=== PATIENT | male | born 1985 | race Caucasian/White ===

== ENCOUNTER → 2017-02-17 | Outpatient (CLI) | payer BC ==
[2017-02-17 09:42] LABS: Follicle Stimulating Hormone 3.8 mIU/mL (1.6-9.7)
== END | disposition home or self-care (01) ==
LOC: LABWHC1 07:57
PROVIDERS: ATTEND Urology
DX: N46.11 Organic oligospermia (principal)
CPT/HCPCS: 36415; 83001; 84403

== ENCOUNTER 2018-12-09 17:56 | Emergency (ER) | payer BC ==
[2018-12-09] MEDS ORDERED: SODIUM CHLORIDE 0.9% 500 ML 500 ML IV STA (19:15)
[2018-12-09] MEDS ORDERED: ONDANSETRON 4 MG/2 ML VIAL IVP STA (19:15)
[2018-12-09] MEDS ORDERED: HYDROmorphone 0.5 MG/0.5 ML SYRINGE IVP STA (19:15)
[2018-12-09] MEDS ORDERED: SODIUM CHLORIDE 0.9% 1,000 ML IV STA (19:15)
[2018-12-09] MEDS ORDERED: KETOROLAC 30 MG/ML 1 ML VIAL IVP STA (19:15)
--- NOTE | 2018-12-09 19:18 | ED ---
Abdominal Pain HPI - General Chief Complaint: Abdominal Pain Stated Complaint: ABDOMINAL PAIN, LEFT FLANK PAIN Time Seen by Provider: 12/09/18 18:54 Source: patient Mode of arrival: ambulatory Limitations: no limitations - History of Present Illness Initial Comments: 33-year-old male patient presents to the emergency department today for evaluation of left-sided abdominal pain that radiates into the left groin and into the left flank. Patient states the pain started suddenly around 3030 this afternoon. Patient rates his been very nauseated and has had several episodes of vomiting with the pain. States he has been chilled and felt feverish. States he has only had a small bit of urine output. Denies any hematuria. He denies any hematochezia or melena. Denies any constipation or diarrhea. States he has had appendectomy but no other abdominal surgeries. Denies history of kidney stone. Denies any discharge from the penis. Patient denies any recent rash, shortness breath, chest pain, numbness, tingling, dizziness, weakness, dysuria, urinary urgency, urinary frequency, headache, visual changes , or any other complaints. - Related Data Previous Rx's Medication Instructions Recorded Hydrocodone/Acetaminophen [Borden 1 - 2 each PO Q6HR PRN #30 tab 08/01/14 5-325] Ibuprofen [Motrin] 600 mg PO Q8HR PRN #30 tab 12/09/18 Ondansetron [Zofran ODT] 4 mg PO Q8HR PRN #10 tab 12/09/18 Tamsulosin HCl [Flomax] 0.4 mg PO DAILY #7 cap 12/09/18 Allergies Allergy/AdvReac Type Severity Reaction Status Date / Time general anesthetic Allergy Unknown Uncoded 12/09/18 18:52 Review of Systems ROS Statement: Those systems with pertinent positive or pertinent negative responses have been documented in the HPI. ROS Other: All systems not noted in ROS Statement are negative. Past Medical History Past Medical History: No Reported History History of Any Multi-Drug Resistant Organisms: None Reported Past Surgical History: Appendectomy, Hernia Repair Additional Past Surgical History / Comment(s): testicular. arm trauma 2009 Past Anesthesia/Blood Transfusion Reactions: No Reported Reaction Past Psychological History: No Psychological Hx Reported Smoking Status: Never smoker Past Alcohol Use History: Occasional Past Drug Use History: None Reported General Exam Limitations: no limitations General appearance: alert, in no apparent distress, other (Social well-developed , well-nourished adult male patient in no acute distress. Vital signs upon presentation are temperature 98.1, pulse 65, respirations 20, blood pressure 145 /87, pulse ox 100% on room air.) Eye exam: Present: normal appearance, PERRL, EOMI. Absent: scleral icterus, conjunctival injection, periorbital swelling ENT exam: Present: normal exam, normal oropharynx, mucous membranes moist Respiratory exam: Present: normal lung sounds bilaterally. Absent: respiratory distress, wheezes, rales, rhonchi, stridor Cardiovascular Exam: Present: regular rate, normal rhythm, normal heart sounds. Absent: systolic murmur, diastolic murmur, rubs, gallop, clicks GI/Abdominal exam: Present: soft, tenderness (Left lower quadrant, suprapubic tenderness), normal bowel sounds. Absent: distended, guarding, rebound, rigid Back exam: Present: normal inspection. Absent: CVA tenderness (R), CVA tenderness (L) Neurological exam: Present: alert, oriented X3, CN II-XII intact Psychiatric exam: Present: normal affect, normal mood Skin exam: Present: warm, dry, intact, normal color. Absent: rash Course Vital Signs 12/09/18 12/09/18 18:50 21:25 Temperature 98.1 F 97.9 F Pulse Rate 65 83 Respiratory 20 16 Rate Blood Pressure 145/87 121/72 O2 Sat by Pulse 100 100 Oximetry Medical Decision Making - Medical Decision Making 33-year-old male patient presented to the emergency department today for evaluation of left-sided abdominal and left flank pain started around 3:30 this afternoon. Physical examination did reveal some left lower quadrant tenderness and left flank tenderness. Labs reviewed and did reveal elevated white blood cell count of 14,000, urinalysis showed 1+ protein, large amount of blood, 67 red blood cells, 12 white blood cells, and many mucous. No bacteria. CT abdomen and pelvis was obtained and did show evidence of a recently passed kidney stone was a 2 mm calculus in the urinary bladder. There was some fullness in the left renal pelvis and some mild fat stranding at the proximal ureter suggestive of a recently passed stone. Did discuss findings and results with the patient. We will start Flomax and anti-inflammatory medication. He' ll be given prescription for Zofran. It is felt that his elevated white blood cell count is secondary to stress and vomiting. He is instructed to follow-up with his primary care physician for recheck in 1-2 days. Return parameters were discussed in detail. He verbalizes understanding and agrees with this plan. - Lab Data Result diagrams: 12/09/18 19:43 12/09/18 19:43 Lab Results 12/09/18 12/09/18 12/09/18 Range/Units 19:43 19:43 20:21 WBC 14.8 H (3.8-10.6) k/uL RBC 4.74 (4.30-5.90) m/uL Hgb 14.3 (13.0-17.5) gm/dL Hct 42.7 (39.0-53.0) % MCV 90.1 (80.0-100.0) fL MCH 30.2 (25.0-35.0) pg MCHC 33.6 (31.0-37.0) g/dL RDW 12.7 (11.5-15.5) % Plt Count 212 (150-450) k/uL Neutrophils % 88 % Lymphocytes % 8 % Monocytes % 4 % Eosinophils % 0 % Basophils % 0 % Neutrophils # 13.0 H (1.3-7.7) k/uL Lymphocytes # 1.1 (1.0-4.8) k/uL Monocytes # 0.5 (0-1.0) k/uL Eosinophils # 0.1 (0-0.7) k/uL Basophils # 0.0 (0-0.2) k/uL Sodium 142 (137-145) mmol/L Potassium 4.1 (3.5-5.1) mmol/L Chloride 104 (98-107) mmol/L Carbon Dioxide 27 (22-30) mmol/L Anion Gap 11 mmol/L BUN 16 (9-20) mg/dL Creatinine 1.06 (0.66-1.25) mg/dL Est GFR (CKD-EPI)AfAm >90 (>60 ml/min/1.73 sqM) Est GFR (CKD-EPI)NonAf >90 (>60 ml/min/1.73 sqM) Glucose 122 H (74-99) mg/dL Calcium 9.5 (8.4-10.2) mg/dL Total Bilirubin 0.7 (0.2-1.3) mg/dL AST 31 (17-59) U/L ALT 44 (21-72) U/L Alkaline Phosphatase 85 (38-126) U/L Total Protein 8.5 H (6.3-8.2) g/dL Albumin 4.8 (3.5-5.0) g/dL Amylase 46 (30-110) U/L Lipase 192 (23-300) U/L Urine Color Light Red Urine Appearance Turbid (Clear) Urine pH 6.0 (5.0-8.0) Ur Specific [place] 1.023 (1.001-1.035) Urine Protein 1+ H (Negative) Urine Glucose (UA) Negative (Negative) Urine Ketones Negative (Negative) Urine Blood Large H (Negative) Urine Nitrite Negative (Negative) Urine Bilirubin Negative (Negative) Urine Urobilinogen 2.0 (<2.0) mg/dL Ur Leukocyte Esterase Negative (Negative) Urine RBC 67 H (0-5) /hpf Urine WBC 12 H (0-5) /hpf Urine Mucus Many H (None) /hpf - Radiology Data Radiology results: report reviewed, image reviewed CT abdomen and pelvis without contrast was obtained. Report was reviewed in its entirety. Impression by Dr. Ramírez shows 2 mm calculus within the urinary bladder just distal to the left ureterovesicular junction likely represents a recently passed left ureteral calculus. Minimal prominence of the left renal pelvis and very mild left proximal ureteral fat stranding suggestive resolving prior left obstructive uropathy secondary to the passage of the 2 mm left ureteral calculus. Disposition Clinical Impression: Kidney stone on left side Disposition: HOME SELF-CARE Condition: Good Instructions (If sedation given, give patient instructions): Kidney Stones (ED) , How to Strain Your Urine (ED) Additional Instructions: Increase fluids. Take medications as directed. Follow-up with primary care physician for recheck in 1-2 days. Return to the emergency department immediately for any new, worsening, or concerning symptoms. Prescriptions: Ibuprofen [Motrin] 600 mg PO Q8HR PRN #30 tab PRN Reason: Pain Ondansetron [Zofran ODT] 4 mg PO Q8HR PRN #10 tab PRN Reason: Nausea Tamsulosin HCl [Flomax] 0.4 mg PO DAILY #7 cap Is patient prescribed a controlled substance at d/c from ED?: No Referrals: Maribel Tucker MD [Primary Care Provider] - 1-2 days Time of Disposition: 21:11
[2018-12-09 19:58] LABS: Basophils % (A) 0 %; Eosinophils # (A) 0.1 k/uL (0-0.7); Eosinophils % (A) 0 %; HCT 42.7 % (39.0-53.0); HGB 14.3 gm/dL (13.0-17.5); Lymphocytes # (A) 1.1 k/uL (1.0-4.8); Lymphocytes % (A) 8 %; MCH 30.2 pg (25.0-35.0); MCHC 33.6 g/dL (31.0-37.0); MCV 90.1 fL (80.0-100.0); Mean Platelet Volume 6.8; Monocytes # (A) 0.5 k/uL (0-1.0); Monocytes % (A) 4 %; Neutrophils % (A) 88 %; Platelet Count 212 k/uL (150-450); RBC 4.74 m/uL (4.30-5.90); RDW 12.7 % (11.5-15.5); WBC 14.8 k/uL (3.8-10.6)
[2018-12-09 20:05] LABS: Potassium 4.1 mmol/L (3.5-5.1); Sodium 142 mmol/L (137-145)
[2018-12-09 20:07] LABS: ALT 44 U/L (21-72); AST 31 U/L (17-59); Albumin 4.8 g/dL (3.5-5.0); Alkaline Phosphatase 85 U/L (38-126); Amylase 46 U/L (30-110); Anion Gap 11 mmol/L; Blood Urea Nitrogen 16 mg/dL (9-20); Calcium 9.5 mg/dL (8.4-10.2); Carbon Dioxide 27 mmol/L (22-30); Chloride 104 mmol/L (98-107); Glucose 122 mg/dL (74-99); Lipase 192 U/L (23-300); Total Bilirubin 0.7 mg/dL (0.2-1.3); Total Protein 8.5 g/dL (6.3-8.2)
--- NOTE | 2018-12-09 20:13 | CT ---
EXAMINATION TYPE: CT abdomen pelvis wo con DATE OF EXAM: 12/09/2018 COMPARISON: 07/31/2014 HISTORY: Left side flank pain. CT DLP: 776.9 mGycm Automated exposure control for dose reduction was used. TECHNIQUE: Helical acquisition of images was performed from the lung bases through the pelvis. FINDINGS: LUNG BASES: No significant abnormality is appreciated. LIVER/GB: No cholelithiasis is noted. Unenhanced liver is unremarkable in morphology. PANCREAS: No significant abnormality is seen. SPLEEN: No significant abnormality is seen. ADRENALS: No significant abnormality is seen. KIDNEYS: There is a 2 mm calculus within the urinary bladder just distal to the left ureterovesicular junction. There is no left-sided hydroureteronephrosis although there is slight fullness of the left renal pelvis and very minimal fat stranding surrounding the proximal left ureter likely resolving le ft sided obstructive uropathy due to recent passage of a left ureteral calculus. No right renal calcu li nor additional left renal calculi are seen. No right-sided hydronephrosis. FREE AIR: No free air is visualized RETROPERITONEAL ADENOPATHY: No greater than 1 cm short axis lymph node is seen within the abdomen or pelvis. REPRODUCTIVE ORGANS: No significant abnormality is seen URINARY BLADDER: 2 mm calculus within the urinary bladder as described above. OSSEOUS STRUCTURES: No significant abnormality is seen. BOWEL: No dilated large or small bowel is seen. Appendix appears surgically absent. IMPRESSION: 2 MM CALCULUS WITHIN THE URINARY BLADDER JUST DISTAL TO THE LEFT URETEROVESICULAR JUNCTION LIKELY REP RESENTS A RECENTLY PASSED LEFT URETERAL CALCULUS. MINIMAL PROMINENCE OF THE LEFT RENAL PELVIS AND PIERCE Y MILD LEFT PROXIMAL URETERAL FAT STRANDING SUGGEST RESOLVING PRIOR LEFT OBSTRUCTIVE UROPATHY SECONDA RY TO THE PASSAGE OF THE 2 MM LEFT URETERAL CALCULUS.
[2018-12-09 20:37] LABS: Appearance,Urine Turbid (Clear); Bilirubin,Urine Negative (Negative); Blood,Urine Large (Negative); Color,Urine Light Red; Glucose,Urine (UA) Negative (Negative); Ketones,Urine Negative (Negative); Leukocyte Esterase,Urine Negative (Negative); Mucus,Urine Many /hpf; Nitrite,Urine Negative (Negative); Protein,Urine 1+ (Negative); RBC,Urine 67 /hpf (0-5); Specific Gravity,Urine 1.023 (1.001-1.035); WBC,Urine 12 /hpf (0-5)
[2018-12-09] MEDS ORDERED: IBUPROFEN 600 MG TAB PO STA (21:07)
[2018-12-09] MEDS ORDERED: ACET/COD 300 MG/30 MG STARTER PACK 6 TAB BTL PO STA (21:07)
[2018-12-09] MEDS ORDERED: TAMSULOSIN 0.4 MG CAP.ER.24H PO STA (21:07)
[2018-12-09] MEDS ORDERED: ONDANSETRON 4 MG ODT STARTER PACK 2 TAB BTL PO STA (21:07)
[2018-12-09 21:25] VITALS: BP 121/72; PULSE 83; RESP 16; TEMP 97.9
== END 2018-12-09 21:28 | disposition home or self-care (01) ==
LOC: EC 17:56
DX: N20.0 Calculus of kidney (principal); R93.422 Abnormal radiologic findings on diagnostic imaging of left kidney; D72.829 Elevated white blood cell count, unspecified; R50.9 Fever, unspecified; Z88.4 Allergy status to anesthetic agent; Z90.49 Acquired absence of other specified parts of digestive tract
CPT/HCPCS: 36415; 80053; 82150; 83690; 85025; 81001; 74176; 99284; 96374; 96375 ×2; 96361; J2405; J1885; S0119; J1170

== ENCOUNTER → 2019-09-21 | Outpatient (CLI) | payer BC ==
--- NOTE | 2019-09-21 13:23 | MR ---
EXAMINATION TYPE: MR iac wo/w con DATE OF EXAM: 09/21/2019 12:06 PM COMPARISON: NONE HISTORY: Hearing loss TECHNIQUE: Multiplanar and multispin-echo imaging of the brain was performed both before and after the administr ation of contrast. High-resolution images are obtained of the internal auditory canals performed uti lizing 10 mL intravenous Gadavist contrast. The ventricles, basal cisterns and sulci overlying the cerebral convexities are within normal limits. There is no evidence for midline shift or mass effect. Acute intracranial hemorrhage or extra-axial collection is not evident. There are no abnormal areas of increased or decreased signal intensity within the brain parenchyma. High-resolution imaging of the internal auditory canals fails demonstrate evidence for an enhancing a coustic schwannoma or cerebellopontine cistern angle mass. Following contrast administration, there is no evidence for pathologic enhancement or enhancing mass. The paranasal sinuses and mastoid air cells are well-aerated. IMPRESSION: 1. No evidence of acoustic schwannoma or cerebellopontine angle mass.
== END | disposition home or self-care (01) ==
LOC: RADMRIMAIN 11:01
PROVIDERS: ATTEND Otolaryngology
DX: H91.92 Unspecified hearing loss, left ear (principal); H93.12 Tinnitus, left ear; H93.3X2 Disorders of left acoustic nerve
CPT/HCPCS: 70553; A9585

== ENCOUNTER → 2020-11-12 | Outpatient (CLI) | payer BC ==
--- NOTE | 2020-11-13 06:45 | US ---
EXAMINATION TYPE: US venous doppler duplex LE LT DATE OF EXAM: 11/12/2020 5:07 PM COMPARISON: NONE CLINICAL HISTORY: M79.672, S92.352D, Z48.89. Pain and swelling, recent surgery. SIDE PERFORMED: left TECHNIQUE: The lower extremity deep venous system is examined utilizing real time linear array sonog anna with graded compression, doppler sonography and color-flow sonography. VESSELS IMAGED: Common Femoral Vein Deep Femoral Vein Greater Saphenous Vein * Femoral Vein Popliteal Vein Small Saphenous Vein * Proximal Calf Veins (* superficial vessels) Left Leg: Negative for DVT GSV and PTV's also scanned per order. Grayscale, color doppler, spectral doppler imaging performed of the deep veins of the left lower extr emity. There is normal flow, compressibility, vascular waveforms. IMPRESSION: No ultrasound evidence for acute deep or superficial venous thrombosis in the left lower extremity.
== END | disposition home or self-care (01) ==
LOC: RADUSWWP 16:20
PROVIDERS: ATTEND Orthopaedic Surgery
DX: I80.02 Phlebitis and thrombophlebitis of superficial vessels of left lower extremity (principal)

== ENCOUNTER → 2020-12-01 | Outpatient (CLI) | payer BC ==
--- NOTE | 2020-12-01 16:45 | US ---
EXAMINATION TYPE: US venous doppler duplex LE LT DATE OF EXAM: 12/01/2020 4:32 PM COMPARISON: NONE CLINICAL HISTORY: I80.9 PHLEBITIS AND THROMBOPHLEBITIS. Calf pain. No redness or swelling. SIDE PERFORMED: Left TECHNIQUE: The lower extremity deep venous system is examined utilizing real time linear array sonog anna with graded compression, doppler sonography and color-flow sonography. VESSELS IMAGED: Common Femoral Vein Deep Femoral Vein Greater Saphenous Vein * Femoral Vein Popliteal Vein Small Saphenous Vein * Proximal Calf Veins (* superficial vessels) Left Leg: Negative for DVT. Rouleaux flow visualized from CFV to proximal calf veins. IMPRESSION: No evidence of deep vein thrombosis in the left leg.
== END | disposition home or self-care (01) ==
LOC: RADUSWWP 16:11
PROVIDERS: ATTEND Podiatrist
DX: I80.9 Phlebitis and thrombophlebitis of unspecified site (principal); Z96.698 Presence of other orthopedic joint implants

== ENCOUNTER 2022-03-10 08:08 | Day surgery (SDC) | payer BC ==
[2022-03-05 14:35] VITALS: BMI 30.2
[~2022-03-10 08:08] MED LIST: DEXAMETHASONE SOD PHOSPHATE 4 MG/ML 1 ML VIAL IV ONE; DEXAMETHASONE SOD PHOSPHATE 4 MG/ML 1 ML VIAL IV PRN; FAMOTIDINE 20 MG/2 ML VIAL IV PRN; HYDROmorphone 0.5 MG/0.5 ML SYRINGE IVP PRN; LIDOCAINE 1% (10MG/ML) FOR IV START INTRADERMA PRN; ONDANSETRON 4 MG/2 ML VIAL IVP ONE; ONDANSETRON 4 MG/2 ML VIAL IVP PRN; SCOPOLAMINE 1 MG/72 HR PATCH TRANSDERM ONE
[2022-03-10] MEDS: LACTATED RINGERS 1,000 ML IV SCH ×2 (08:27→10:26)
[2022-03-10] MEDS ORDERED: METOCLOPRAMIDE 5 MG/ML 2 ML VIAL ONE (09:30)
[2022-03-10] MEDS ORDERED: METOCLOPRAMIDE 5 MG/ML 2 ML VIAL IVP ONE (09:34)
[2022-03-10] MEDS ORDERED: SUCCINYLCHOLINE CHLORIDE 100 MG/5 ML SYR IV ONE (10:20)
[2022-03-10] MEDS ORDERED: LIDOCAINE 4% LTA KIT (4 ML) TOPICAL ONE (10:20)
[2022-03-10] MEDS ORDERED: PROPOFOL 10 MG/ML 20 ML VIAL IV ONE (10:20)
[2022-03-10] MEDS ORDERED: fentaNYL (PF) 50 MCG/ML 2 ML AMP ONE (10:20)
[2022-03-10] MEDS ORDERED: LIDOCAINE 2% INJ 20 MG/ML (2 ML VIAL) ONE (10:20)
[2022-03-10] MEDS ORDERED: MIDAZOLAM 2 MG/2 ML VIAL ONE (10:20)
[2022-03-10] MEDS ORDERED: LACTATED RINGERS 1,000 ML IV ONE (11:32)
--- NOTE | 2022-03-10 11:34 | P.OP ---
Date of Procedure: 03/10/22 Preoperative Diagnosis: Chronic tonsillitis Tonsillar hypertrophy Postoperative Diagnosis: Same Anesthesia: HECTOR Surgeon: Shad Pack Estimated Blood Loss (ml): 4 Pathology: other (Bilateral tonsils) Condition: stable Disposition: PACU Indications for Procedure: This is a 36-year-old white male is had difficulties with chronic and recurrent tonsillitis with tonsillar swelling as well as uvular edema when this tonsils swell and become infected. Operative Findings: Tonsils +3.5 bilaterally although the left is a little larger than the right, mild adenoid hypertrophy Description of Procedure: PROCEDURE: The patient was brought into the operative suite and placed in the supine position. The patient underwent induction of general anesthesia with oral endotracheal intubation without difficulty. The table was turned 90 degrees and the patient was positioned with a shoulder roll and head donut. The patient was prepped and draped in the usual aseptic fashion. The McIvor mouth gag was placed. The soft palate was palpated. No submucous cleft was noted. Red rubber Teague catheters were placed through both nasal cavities and pulled through the oropharynx for soft palate retraction. The nasopharynx was examined with a mirror examiner and the adenoids were vaporized/cauterized with suction cautery. This ablated the adenoids and there was good hemostasis noted. The red rubber Teague catheters were removed. The left tonsil was then grasped with a curved Allis clamp and dissected from the tonsillar fossa in a superior to inferior direction using both blunt and electrocautery dissection until the tonsils was removed. Once the tonsils were removed, hemostasis was gained with suction cautery. Attention was then turned to the right where the right tonsil was removed exactly as the left had been. Once hemostasis was obtained and remained good in both tonsillar fossa as well as the nasopharynx, the patient was suctioned in an orogastric fashion and the McIvor mouth gag was removed. There appeared to be some element of active inflammation presently as there was more oozing than usual but this was well controlled. The patient was then allowed to emerge from general anesthesia, having tolerated the procedure well. The patient was extubated in the operative suite and transferred to the postoperative recovery area in satisfactory condition.
[2022-03-10 11:48] VITALS: RESP 16; TEMP 97.5
[2022-03-10] MEDS ORDERED: diphenhydrAMINE 50 MG/ML 1 ML VIAL IVP ONE (11:53)
[2022-03-10] MEDS ORDERED: HYDROcodone/APAP 5-325MG 1 EACH TAB ONE (12:44)
[2022-03-10] MEDS ORDERED: HYDROcodone/APAP 5-325MG 1 EACH TAB PO ONE (12:45)
[2022-03-10 13:30] VITALS: BP 135/67; PULSE 66
== END 2022-03-10 13:31 | disposition home or self-care (01) ==
LOC: OR 08:08
PROVIDERS: ATTEND Otolaryngology
DX: J35.3 Hypertrophy of tonsils with hypertrophy of adenoids (principal); J35.01 Chronic tonsillitis; A42.89 Other forms of actinomycosis; B37.0 Candidal stomatitis; K21.9 Gastro-esophageal reflux disease without esophagitis; Z98.890 Other specified postprocedural states; Z79.899 Other long term (current) drug therapy; Z81.8 Family history of other mental and behavioral disorders; Z82.0 Family history of epilepsy and other diseases of the nervous system; Z80.7 Family history of other malignant neoplasms of lymphoid, hematopoietic and related tissues; Z83.3 Family history of diabetes mellitus
CPT/HCPCS: 88304; 42821; J2250; J1200; J1100; J2765; J0690; J2405; J3010; J0330; J2704; J1170; J2001

== ENCOUNTER → 2023-11-08 | Outpatient (CLI) | payer BC ==
[2023-11-08 13:43] LABS: African American GFR (CKD) >90 (>60 ml/min/1.73 sqM); Blood Urea Nitrogen 12 mg/dL (9-20); Non-African American GFR(CKD) >90 (>60 ml/min/1.73 sqM)
--- NOTE | 2023-11-16 09:50 | CT ---
EXAMINATION TYPE: CT abdomen wo/w con CT DLP: 1895.4 mGycm, Automated exposure control for dose reduction was used. DATE OF EXAM: 11/08/2023 2:23 PM COMPARISON: CT abdomen pelvis without contrast 12/09/2018 and with contrast 07/31/2014 CLINICAL INDICATION:Male, 38 years old with history of N28.89 OTHER SPECIFIED DISORDERS OF KIDNEY; ri ght renal mass TECHNIQUE: Axial CT of the abdomen was performed without contrast, postcontrast, and delayed for felipa al excretory phase. Sagittal and coronal reformats were created on a separate workstation. Contrast used:100 mL of Isovue 300 without and with IV Contrast, (none if empty) Oral contrast used: with Oral Contrast (none if empty) FINDINGS: LOWER CHEST: Lung bases are clear. Heart size is normal. ABDOMEN LIVER: Unremarkable GALLBLADDER AND BILE DUCTS: The gallbladder is surgically absent. Biliary tree does not appear pathol ogically dilated. PANCREAS: Unremarkable. SPLEEN: Unremarkable. ADRENAL GLANDS: Unremarkable. KIDNEYS AND URETERS: No evidence of calculi. Kidneys enhance symmetrically. There is again mild corti cherise volume loss in the right upper pole posteriorly with underlying cyst which appears slightly small er than 07/31/2014, today measuring up to 11.5 x 10 mm and was up to 19 x 11 mm. Otherwise no renal ma sses are detected. Kidneys excrete contrast symmetrically with normally opacified upper ureters. No h ydronephrosis. ABDOMEN & PELVIS STOMACH AND BOWEL: Possible small sliding type hiatal hernia. There is contrast within nondistended s tomach. No contrast in the duodenum. Contrast in the mid to distal small bowel loops, not yet reachin g the colon. No evidence of obstruction. There is moderate stool throughout the included colon withou t acute process demonstrated. Appendix is not seen, and there are postop changes with radiodensity a djacent to the cecum likely related to appendectomy. PERITONEUM/RETROPERITONEUM: No evidence of pneumoperitoneum or free fluid. VASCULATURE: Aorta and major branches are grossly unremarkable. No AAA. LYMPH NODES: No gross evidence for lymphadenopathy. SOFT TISSUE/ABDOMINAL WALL: Unremarkable MUSCULOSKELETAL: No acute osseous abnormalities. Mild disc degeneration changes are present throughou t the lumbar and visualized thoracic spine. [id number] IMPRESSION: * No evidence of renal calculi. No hydronephrosis. * There is again mild cortical volume loss in the upper pole right kidney posteriorly with underlyin g cyst which appears slightly smaller than 07/31/2014, * Kidneys otherwise enhance symmetrically with no renal masses detected.
== END | disposition home or self-care (01) ==
LOC: RADCTMAIN 12:55
PROVIDERS: ATTEND Family Medicine
DX: N28.1 Cyst of kidney, acquired (principal); N28.89 Other specified disorders of kidney and ureter
CPT/HCPCS: 82565; 84520; 74170; 36415; Q9967